=== PATIENT | male | born 1965 | race Caucasian/White ===

== ENCOUNTER 2022-07-15 13:38 | Emergency (ER) | payer SELFPAY ==
[~2022-07-15] VITALS: Ht 175.3 cm; Wt 74.8 kg
[2022-07-15 13:45] VITALS: BP 155/99
[2022-07-15 15:52] VITALS: BP 155/99
--- NOTE | 2022-07-15 15:52 | NUR ---
PATIENT LEFT WITHOUT BEING SEEN BY DR. RUTH RODRIGUEZ. NO FURTHER CARE PROVIDED FOR PATIENT.
== END 2022-07-15 15:52 | disposition left against medical advice (07) ==
LOC: MED 13:38
DX: S80.212A Abrasion, left knee, initial encounter (principal); Z53.21 Procedure and treatment not carried out due to patient leaving prior to being seen by health care provider; W01.0XXA Fall on same level from slipping, tripping and stumbling without subsequent striking against object, initial encounter; Y92.89 Other specified places as the place of occurrence of the external cause; Y93.89 Activity, other specified; Y99.8 Other external cause status
CPT/HCPCS: 99281

== ENCOUNTER 2022-07-29 14:59 | Inpatient (IN) | payer SELFPAY ==
[~2022-07-29] VITALS: Ht 185.4 cm; Wt 99.8 kg
[2022-07-29 15:29] VITALS: BP 160/90
[2022-07-29] MEDS ORDERED: NACL 0.9% 1,000 ML IV ONE ×2 (15:45→17:45)
[2022-07-29] MEDS ORDERED: DIAZEPAM PFS 10 MG/2 ML SYR IVP ONE (15:45)
--- NOTE | 2022-07-29 15:50 | NUR ---
PT TAKEN TO ER BED 2
[2022-07-29 16:21] LABS: BASOPHILS % (AUTO) 0.5 % (0.0-2.0); EOSINOPHILS % (AUTO) 0.1 % (0.0-4.0); HEMATOCRIT 43.5 % (36-52); HEMOGLOBIN 15.7 g/dL (12.0-18.0); LYMPHOCYTES # (AUTO) 1.2 K/uL (2.0-11.5); LYMPHOCYTES % (AUTO) 15.6 % (20.5-51.1); MEAN CORPUSCULAR HEMOGLOBIN 33 pg (27-31); MEAN CORPUSCULAR HGB CONC 36 g/dL (33-37); MEAN CORPUSCULAR VOLUME 90.8 fL (80-94); MONOCYTES # (AUTO) 0.9 K/uL (0.8-1.0); MONOCYTES % (AUTO) 12.2 % (1.7-9.3); NEUTROPHILS # (AUTO) 5.5 K/uL (1.8-7.7); NEUTROPHILS % (AUTO) 71.6 % (42.2-75.2); PLATELET COUNT (AUTO) 107 K/uL (140-450); RED BLOOD CELL COUNT(AUTO) 4.79 MIL/uL (4.20-6.10); RED CELL DISTRIBUTION WIDTH 14.2 % (11.6-13.7); WHITE BLOOD COUNT (AUTO) 7.7 K/uL (4.8-10.8)
--- NOTE | 2022-07-29 16:25 | NUR ---
PATIENT TAKEN TO RADIOLOGY. STABLE AT THIS TIME
[2022-07-29 17:12] LABS: ALBUMIN 3.9 g/dL (3.4-5.0); ANION GAP 18.9 (8-16); ASPARTATE AMINOTRANSFERASE 161 U/L (15-37); CARBON DIOXIDE 22.9 mmol/L (21-32); CHLORIDE 97 mmol/L (98-107); CREATININE 0.9 mg/dL (0.6-1.3); GFR ARICAN-AMERICAN 111 mL/min (>90); GLUCOSE 202 mg/dL (74-106); LIPASE 363 U/L (73-393); SODIUM SERUM 136 mmol/L (136-145); TOTAL BILIRUBIN 5.3 mg/dL (0.0-1.0); UREA NITROGEN, BLOOD 17 mg/dL (7-18)
[2022-07-29 17:14] LABS: POTASSIUM 2.8 mmol/L (3.5-5.1)
[2022-07-29 17:18] LABS: ACETONE, SERUM NEGATIVE (NEGATIVE)
[2022-07-29] MEDS ORDERED: POTASSIUM CHLORIDE 10 MEQ TABER PO ONE (17:20)
[2022-07-29] MEDS ORDERED: KCL 20 MEQ IN 100 mL PREMIX 100 ML IV ONE (17:20)
[2022-07-29 18:39] LABS: MAGNESIUM 1.5 mg/dL (1.8-2.4)
[2022-07-29 18:42] LABS: PHOSPHORUS 1.1 mg/dL (2.5-4.9)
--- NOTE | 2022-07-29 18:43 | NUR ---
called from lab phosporus 1.1 and mag 1.4 made aware
[2022-07-29] MEDS ORDERED: MAG SULF 2000 MG/WATER PREMIX 50 ML IV ONE (18:45)
[2022-07-29] MEDS ORDERED: POTASSIUM PHOSPHATE 15 MM in NACL 0.9% 250 ML IV ONE (18:45)
[2022-07-29 18:52] LABS: BILIRUBIN,URINE 1+ (NEGATIVE); BLOOD, URINE 1+ (NEGATIVE); COLOR,URINE YELLOW (YELLOW); LEUKOCYTE ESTERASE ,URINE NEGATIVE (NEGATIVE); NITRITE, URINE POSITIVE (NEGATIVE); UGLUCOSE 2+ (NEGATIVE)
[2022-07-29 18:55] LABS: APPEARANCE,URINE HAZY (CLEAR)
--- NOTE | 2022-07-29 19:16 | NUR ---
PT RC'D IN BED 2, REPORT RC'D FROM IRINA WANG. PT ADMITTED PENDING ROOM ON THE FLOOR, WELL FURTHER MED ADMINISTRATION.
[2022-07-29 19:24] LABS: RBC,URINE 0-5 /HPF (0-5); WBC,URINE NONE SEEN /HPF (0-5)
[2022-07-29] MEDS ORDERED: chlordiazePOXIDE 25 MG CAP PO PRN (19:40)
--- NOTE | 2022-07-29 19:53 | NUR ---
STEW KELLEY SWAB SENT TO LAB
--- NOTE | 2022-07-29 19:53 | NUR ---
CRITICAL LAB VALUE REPORTED FROM BAG MACHINE TENDER JANN, LACTIC ACID 2.3. GILMA BREAUX INFORMED. AT 1951.
--- NOTE | 2022-07-29 20:34 | NUR ---
UNABLE TO PLACE BANANA BAG ORDER, MADE AWARE TO PLEASE PLACE ORDER .
--- NOTE | 2022-07-29 21:30 | NUR ---
PT TAKEN TO THE FLOOR 104-B, PLACED ON TELE BOX. PT WAS TRANSPORTED ON TELE MONITOR WITH COMPARATOR OPERATOR AND MARINE STEWARD.
[2022-07-29 21:40] VITALS: BP 199/108
--- NOTE | 2022-07-29 21:40 | NUR ---
PT TRANSPORTED FROM ER TO MST UNIT VIA GURNEY. PT A/A/O. FELT DIZZY SPECIALLY WHEN MOVING. DENIES PAIN. NO COMPLAINTS OF VOMITING. RESPIRATIONS EVEN AND UNLABORED, SATTING AT 99% ON RA. ATTACHED TO [employer]. V/S AND MRSA SWAB TAKEN. USES URINAL. MG SULFATE CONTINUED BY KATHLEEN PEARL, INFUSED ON LEFT HAND IV LINE. NOTED EXCORIATION/ABRASION ON LEFT CHEEK, CHIN, LEFT KNEE, LEFT AND RIGHT HAND. PHOTOS TAKEN AND FILED. PT ORIENTED TO ROOM, UNIT AND ROUTINE. POC DISCUSSED TO PT AND KATHLEEN PEARL. CALL LIGHT WITHIN REACH. SAFETY PRECAUTIONS IN PLACE.
--- NOTE | 2022-07-29 22:23 | NUR ---
BP 199/[address] NELSON MADE AWARE. RECEIVED ORDER. INFORMED RN DAE.
[2022-07-29] MEDS: hydrALAZINE 20 MG/ML VIAL IVP PRN (22:34)
[2022-07-29] MEDS ORDERED: cefTRIAXone 2,000 MG VIAL ONE (22:38)
[2022-07-30] VITALS: BP 167/100
--- NOTE | 2022-07-30 02:32 | NUR ---
Patient's Plan of Care was discussed and reviewed with BURGLAR ALARM MECHANIC: URMILA MURPHY
--- NOTE | 2022-07-30 03:22 | NUR ---
WE DON'T HAVE POTASSIUM PHOSPHATE ON THE FLOOR.INFORMED HS.HE CONTACTED [facility] ,HE SAID PHARMACY CAN MAKE IT IN AM.NOW ONLY GIVE PT KCL IV.THAT IT DONE IN ER.
[2022-07-30 04:00] VITALS: BP 157/91
--- NOTE | 2022-07-30 04:12 | NUR ---
V/S WAS TAKEN. PT STATED THAT HE WAS ABLE TO SLEEP AND THAT HE FELT A LOT BETTER NOW. DENIES PAIN. PT SAID HE CAN MOVE HIS HEAD WITHOUT FEELING DIZZY NOW BUT HASN'T TRIED TO STAND UP YET SO HE DOESN'T KNOW IF HE TOTALLY DOESN'T FEEL DIZZY NOW. ADVISED TO TAKE SOME MORE REST AND NOT TO GET-UP WITHOUT ASSISTANCE. PT RE-ORIENTED TO USE OF CALL LIGHT.
--- NOTE | 2022-07-30 07:11 | NUR ---
ENDORSED PT TO KATHLEEN MEDINA FOR CONTINUITY OF CARE. PT IS STABLE.
[2022-07-30 08:00] VITALS: BP 166/97
[2022-07-30] MEDS: hydrALAZINE 20 MG/ML VIAL IVP PRN (09:11)
--- NOTE | 2022-07-30 10:52 | NUR ---
PATIENT COMPLAINS OF WITHDRAWAL ANXIETY AND DIZZINESS WITH AMBULATION. ENCOURAGEMENT TO MAINTAIN BEDREST FOR SAFETY. PATIENT NEEDS FURTHER INSTRUCTION.
[2022-07-30 11:24] LABS: BASOPHILS % (AUTO) 0.3 % (0.0-2.0); EOSINOPHILS % (AUTO) 0.4 % (0.0-4.0); HEMATOCRIT 40.8 % (36-52); HEMOGLOBIN 14.4 g/dL (12.0-18.0); LYMPHOCYTES # (AUTO) 0.9 K/uL (2.0-11.5); LYMPHOCYTES % (AUTO) 13.1 % (20.5-51.1); MEAN CORPUSCULAR HEMOGLOBIN 33 pg (27-31); MEAN CORPUSCULAR HGB CONC 35 g/dL (33-37); MEAN CORPUSCULAR VOLUME 91.7 fL (80-94); MONOCYTES # (AUTO) 0.7 K/uL (0.8-1.0); MONOCYTES % (AUTO) 9.8 % (1.7-9.3); NEUTROPHILS # (AUTO) 5.4 K/uL (1.8-7.7); NEUTROPHILS % (AUTO) 76.4 % (42.2-75.2); PLATELET COUNT (AUTO) 93 K/uL (140-450); RED BLOOD CELL COUNT(AUTO) 4.45 MIL/uL (4.20-6.10); RED CELL DISTRIBUTION WIDTH 13.6 % (11.6-13.7); WHITE BLOOD COUNT (AUTO) 7.1 K/uL (4.8-10.8)
[2022-07-30 11:40] LABS: ANION GAP 13.3 (8-16); CARBON DIOXIDE 24.5 mmol/L (21-32); CREATININE 0.8 mg/dL (0.6-1.3)
[2022-07-30 11:44] LABS: MAGNESIUM 1.6 mg/dL (1.8-2.4); PHOSPHORUS 1.7 mg/dL (2.5-4.9)
[2022-07-30] MEDS: KCL 20 MEQ IN 100 mL PREMIX 200 ML IV PRN (11:57)
[2022-07-30 12:00] VITALS: BP 169/97
[2022-07-30] MEDS ORDERED: POTASSIUM PHOSPHATE 15 MM in NACL 0.9% 250 ML IV SCH (12:00)
[2022-07-30 12:35] LABS: POTASSIUM 2.8 mmol/L (3.5-5.1)
[2022-07-30] MEDS: lisinopriL 20 MG TAB PO SCH (12:43)
[2022-07-30 16:00] VITALS: BP 133/81
--- NOTE | 2022-07-30 19:08 | NUR ---
RECEIVED REPORT FROM DAY SHIFT NURSE CAROL FOR CONTINUITY OF CARE. PT IN BED, CAME BACK FROM THE REST ROOM. PER PT HE IS A LOT BETTER AT PRESENT. NO COMPLAINTS OF DIZZINESS , SOB PAIN. A/A/O. AMBULATORY. ON LANDSCAPING AND GROUNDSKEEPING LABORER. RESPIRATIONS EVEN AND UNLABORED ON RA. IV SITE ON LFA INFUSING K-RIDER. POC DISCUSSED WITH PT AND KATHLEEN ONTIVEROS. CALL LIGHT WITHIN REACH. SAFETY PRECAUTIONS IN PLACE.
[2022-07-30 20:00] VITALS: BP 118/74
--- NOTE | 2022-07-30 20:00 | NUR ---
Patient's Plan of Care was discussed and reviewed with LUIS Meredith.
--- NOTE | 2022-07-30 20:35 | NUR ---
RECEIVED ORDER FROM DR NELSON TO START PO MG OX 400MG PO DAILY AND HOLD POTASSIUM PHOSPHATE. NOTED ORDERS AND CARRIED OUT.
[2022-07-30] MEDS ORDERED: MAGNESIUM OXIDE 400 MG TAB PO SCH (21:00)
--- NOTE | 2022-07-30 21:00 | NUR ---
US TECH AT BEDSIDE FOR PT'S US-ABD.
[2022-07-30] MEDS ORDERED: cefTRIAXone 2,000 MG in DEXTROSE 5% 100 ML IV SCH (23:00)
[2022-07-31] VITALS: BP 142/85
[2022-07-31 04:00] VITALS: BP 141/88
--- NOTE | 2022-07-31 04:04 | NUR ---
V/S TAKEN. NO COMPLAINTS OF PAIN. DENIES DIZZINESS, SOB. NO DISTRESS NOTED. SAFETY PRECAUTIONS IN PLACE.
--- NOTE | 2022-07-31 07:03 | NUR ---
GAVE BEDSIDE REPORT TO DAY SHIFT NURSE CAROL FOR CONTINUITY OF CARE. PT IS STABLE.
[2022-07-31 07:42] VITALS: BP 169/101
[2022-07-31 08:38] LABS: BASOPHILS % (AUTO) 0.4 % (0.0-2.0); EOSINOPHILS # (AUTO) 0.1 K/uL (0-0.4); HEMATOCRIT 39.1 % (36-52); HEMOGLOBIN 13.6 g/dL (12.0-18.0); LYMPHOCYTES # (AUTO) 1.4 K/uL (2.0-11.5); LYMPHOCYTES % (AUTO) 17.8 % (20.5-51.1); MEAN CORPUSCULAR HEMOGLOBIN 33 pg (27-31); MEAN CORPUSCULAR HGB CONC 35 g/dL (33-37); MEAN CORPUSCULAR VOLUME 93.9 fL (80-94); MONOCYTES # (AUTO) 0.8 K/uL (0.8-1.0); MONOCYTES % (AUTO) 10.6 % (1.7-9.3); NEUTROPHILS # (AUTO) 5.5 K/uL (1.8-7.7); NEUTROPHILS % (AUTO) 70.2 % (42.2-75.2); PLATELET COUNT (AUTO) 85 K/uL (140-450); RED BLOOD CELL COUNT(AUTO) 4.17 MIL/uL (4.20-6.10); RED CELL DISTRIBUTION WIDTH 13.9 % (11.6-13.7); WHITE BLOOD COUNT (AUTO) 7.8 K/uL (4.8-10.8)
[2022-07-31] MEDS: lisinopriL 20 MG TAB PO SCH (08:48)
[2022-07-31] MEDS: hydrALAZINE 20 MG/ML VIAL IVP PRN (08:49)
[2022-07-31] MEDS ORDERED: MAGNESIUM OXIDE 400 MG TAB PO SCH (09:00)
[2022-07-31 09:24] LABS: ANION GAP 12.5 (8-16); CARBON DIOXIDE 26.3 mmol/L (21-32); CREATININE 0.7 mg/dL (0.6-1.3)
[2022-07-31 09:25] LABS: POTASSIUM 2.8 mmol/L (3.5-5.1)
[2022-07-31] MEDS: KCL 20 MEQ IN 100 mL PREMIX 200 ML IV PRN (09:33)
--- NOTE | 2022-07-31 09:41 | NUR ---
PATIENT HAS BEEN SCREENED AND CATEGORIZED MODERATE NUTRITION RISK. PATIENT WILL BE SEEN WITHIN 3-5 DAYS OF ADMISSION. 07/29/22-08/03/[address]
[2022-07-31] MEDS ORDERED: POTASSIUM CHLORIDE 10 MEQ TABER PO SCH (10:05)
[2022-07-31] MEDS ORDERED: POTA10TA70 PO (11:21)
[2022-07-31] MEDS ORDERED: LIB25 PO (11:21)
[2022-07-31] MEDS ORDERED: MULT-2253 PO (11:21)
[2022-07-31 11:34] VITALS: BP 84/54
--- NOTE | 2022-07-31 14:19 | NUR ---
PATIENT DISCHARGE TO HOME WITH ALL BELONGINGS AND A COPY OF DISCHARGE INSTRUCTIONS. PATIENT VERBALIZES UNDERSTANDING OF TEACHING. INTACT INTRAVENOUS CATHETER TIP OF A 24 GAUGE SIZE FROM HIS LEFT FOREARM UPON REMOVAL. IDENTIFICATION BRACELET REMOVAL.
[2022-08-01] MEDS ORDERED: lisinopriL 20 MG TAB PO SCH (09:00)
== END 2022-07-31 13:50 | disposition home or self-care (01) | DRG 641 ==
LOC: MED 14:59 → MTU 19:45
DX: E87.29 Other acidosis (principal); F10.139 Alcohol abuse with withdrawal, unspecified; F10.188 Alcohol abuse with other alcohol-induced disorder; F41.9 Anxiety disorder, unspecified; Z20.822 Contact with and (suspected) exposure to COVID-19; S00.12XA Contusion of left eyelid and periocular area, initial encounter; S00.81XA Abrasion of other part of head, initial encounter; E83.42 Hypomagnesemia; E83.39 Other disorders of phosphorus metabolism; E87.6 Hypokalemia; X58.XXXA Exposure to other specified factors, initial encounter; Y93.89 Activity, other specified; Y92.89 Other specified places as the place of occurrence of the external cause; Y99.8 Other external cause status
CPT/HCPCS: 36415; 70450; 70486; 76700; 80048; 80053; 81001; 82009; 83605; 83690; 83735; 84100; 85025; 87081; 87086; 96365; 96366; 96375; 99285; G0482; J0360; J0696; J3360; J3475; J3480; J7030; J7060; Q0092